=== PATIENT | female | born 1985 | race Caucasian/White ===

== ENCOUNTER 2022-02-03 17:50 | Emergency (ER) | payer OTHER ==
[2022-02-03 18:23] VITALS: BP 112/78; PULSE 91; TEMP 98; BMI 26.5
[2022-02-03] MEDS ORDERED: IBUPROFEN 600 MG TABLET (FP) PO ONE ×2 (20:49→20:51)
[2022-02-03] MEDS ORDERED: LIDOCAINE 5% TOPICAL PATCH TP ONE (20:50)
[2022-02-03] MEDS ORDERED: LIDOCAINE 5% TOPICAL PATCH ONE (20:51)
[2022-02-03] MEDS ORDERED: CYCLOBENZAPRINE HCL 10 MG TABLET (FP) PO ONE (21:56)
[2022-02-03] MEDS ORDERED: CYCLOBENZAPRINE HCL 10 MG TABLET (FP) ONE (21:57)
== END 2022-02-03 22:44 | disposition home or self-care (01) ==
LOC: JER 17:50 → JERFT 17:50
DX: M54.50 Low back pain, unspecified (principal); V49.50XA Passenger injured in collision with unspecified motor vehicles in traffic accident, initial encounter
CPT/HCPCS: 72100-TC-FY; 99283-25

== ENCOUNTER 2024-01-24 17:20 | Emergency (ER) | payer OTHER ==
[2024-01-24 17:31] VITALS: BP 121/67; PULSE 97; RESP 18; TEMP 98; BMI 27.6
== END 2024-01-24 21:55 | disposition home or self-care (01) ==
LOC: JERFT 17:20 → JER 17:20 → JERFT 21:55
DX: S16.1XXA Strain of muscle, fascia and tendon at neck level, initial encounter (principal); S20.219A Contusion of unspecified front wall of thorax, initial encounter; M25.512 Pain in left shoulder; V73.6XXA Passenger on bus injured in collision with car, pick-up truck or van in traffic accident, initial encounter
CPT/HCPCS: 71046-TC-FY; 72040-TC; 73030-TC-LT-FY; 99284-25

== ENCOUNTER 2024-06-25 09:05 | Day surgery (SDC) | payer OTHER ==
[2024-06-25] MEDS: FERRIC CARBOXYMALTOSE 750 MG in SODIUM CHLORIDE 250 ML IVPB ONE (09:43)
[2024-06-25 16:27] VITALS: BP 109/63; PULSE 82; RESP 20; TEMP 98.2
== END 2024-06-25 10:45 | disposition home or self-care (01) ==
LOC: JONCCHEMO 09:05 → J7W 09:06 → JONCCHEMO 10:45
PROVIDERS: ATTEND Student in an Organized Health Care Education/Training Program
PROC: 3E033GC Introduction of Other Therapeutic Substance into Peripheral Vein, Percutaneous Approach (ICD-10-PCS; principal; 2024-06-25)
DX: D50.9 Iron deficiency anemia, unspecified (principal)
CPT/HCPCS: 96365; J1439

== ENCOUNTER 2024-07-02 09:23 | Day surgery (SDC) | payer OTHER ==
[2024-07-02] MEDS: FERRIC CARBOXYMALTOSE 750 MG in SODIUM CHLORIDE 250 ML IVPB ONE (09:52)
[2024-07-02 09:58] VITALS: RESP 18; TEMP 97.8
[2024-07-02 10:40] VITALS: BP 105/60; PULSE 71
== END 2024-07-02 10:45 | disposition home or self-care (01) ==
LOC: JONCCHEMO 09:23 → J7W 09:26 → JONCCHEMO 10:45
PROVIDERS: ATTEND Student in an Organized Health Care Education/Training Program
PROC: 3E033GC Introduction of Other Therapeutic Substance into Peripheral Vein, Percutaneous Approach (ICD-10-PCS; principal; 2024-07-02)
DX: D50.9 Iron deficiency anemia, unspecified (principal)
CPT/HCPCS: 96365; J1439